=== PATIENT | male | born 1980 | race Caucasian/White ===

== ENCOUNTER 2021-05-24 09:02 | Outpatient (REF) | payer OTHER, SELFPAY ==
[2021-05-24 10:00] LABS: Hematocrit 43.8 % (42-52); Hemoglobin 14.9 g/dl (14.0-18.0); Mean Corpuscular Hemoglobin 29.6 pg (27.0-33.0); Mean Corpuscular Volume 86.9 fL (80-98); Platelet Count 281 X10*3/uL (160-400); Red Blood Count 5.04 X10*6/uL (4.60-5.80); Red Cell Distribution Width 13.1 % (11.0-16.0); White Blood Count 8.5 X10*3/uL (4.8-10.8)
[2021-05-24 10:21] LABS: Estimated Average Glucose 108 mg/dL; Hemoglobin A1C 138.3222 umol/L; Hemoglobin A1c % 5.4 %
[2021-05-24 10:22] LABS: Alanine Aminotransferase 48 U/L (0-40); Albumin Level 4.3 g/dL (3.5-5.0); Alkaline Phosphatase 68 U/L (39-117); Anion Gap 12 (12-20); Aspartate Amino Transferase 26 U/L (5-37); Bilirubin Total 0.5 mg/dL (0.0-1.0); Blood Urea Nitrogen 7 mg/dL (9-16); Calcium 9.2 mg/dL (8.4-10.2); Carbon Dioxide 26 mmol/L (22-29); Chloride 107 mmol/L (96-108); Cholesterol 206 mg/dL; Estimated Glomerular Filt Rate > 60; Glucose Fasting 102 mg/dL (60-99); HDL Cholesterol 32 mg/dL; Potassium 4.2 mmol/L (3.3-5.1); Sodium 141 mmol/L (135-145); Total Protein 7.1 g/dL (6.5-8.0); Triglycerides 523 mg/dL
== END 2021-05-24 09:03 | disposition home or self-care (01) ==
LOC: HO.LAB 09:02
PROVIDERS: PCP Physician Assistant; Visit Provider Physician Assistant
DX: Z13.220 Encounter for screening for lipoid disorders (principal); Z13.29 Encounter for screening for other suspected endocrine disorder; I10 Essential (primary) hypertension
CPT/HCPCS: 36415; 80053; 80061; 83036; 84443; 85027

== ENCOUNTER 2021-09-05 09:59 | Emergency (ER) | payer OTHER, SELFPAY ==
[2021-09-05 10:22] VITALS: BP 142/80; PULSE 65; RESP 20; TEMP 36.3; O2SAT 98; BMI 32.1
== END 2021-09-05 15:45 | disposition left against medical advice (07) ==
PROVIDERS: Emergency Provider Emergency Medicine; PCP Physician Assistant
DX: M25.469 Effusion, unspecified knee (principal)
CPT/HCPCS: 99281; 99282

== ENCOUNTER 2022-09-23 06:06 | Outpatient (REF) | payer OTHER, SELFPAY ==
[2022-09-23 07:33] LABS: Hematocrit 47.5 % (42.0-52.0); Mean Corpuscular HGB Conc 33.7 g/dl (31.0-36.0); Mean Corpuscular Hemoglobin 29.6 pg (27.0-33.0); Mean Platelet Volume 9.8 fL (9.4-12.4); Platelet Count 288 X10*3/uL (160-400); Red Cell Distribution Width 12.4 % (11.0-16.0); White Blood Count 10.3 X10*3/uL (4.8-10.8)
[2022-09-23 11:25] LABS: Alanine Aminotransferase 33 U/L (0-40); Albumin Level 4.4 g/dL (3.5-5.0); Alkaline Phosphatase 70 U/L (39-117); Anion Gap 18 (12-20); Aspartate Amino Transferase 23 U/L (5-37); Bilirubin Total 0.3 mg/dL (0.0-1.0); Blood Urea Nitrogen 13 mg/dL (9-16); Calcium 8.9 mg/dL (8.4-10.2); Carbon Dioxide 25 mmol/L (22-29); Chloride 103 mmol/L (96-108); Cholesterol 213 mg/dL; Estimated Glomerular Filt Rate > 60; HDL Cholesterol 31 mg/dL; Potassium 4.2 mmol/L (3.3-5.1); Sodium 142 mmol/L (135-145); Total Protein 7.4 g/dL (6.5-8.0); Triglycerides 620 mg/dL
[2022-09-23 11:47] LABS: TSH reflex Free T4 4.57 uIU/mL (0.32-4.0)
[2022-09-23 12:27] LABS: Free T4 (Free Thyroxine) 0.99 ng/dL (0.71-1.85)
[2022-09-23 12:37] LABS: Glucose Fasting 105 mg/dL (60-99)
== END 2022-09-23 06:07 | disposition home or self-care (01) ==
LOC: HO.LAB 06:06
PROVIDERS: PCP Physician Assistant; Visit Provider Physician Assistant
DX: I10 Essential (primary) hypertension (principal); E78.1 Pure hyperglyceridemia
CPT/HCPCS: 36415; 80053; 80061; 84439; 84443; 85027

== ENCOUNTER 2023-08-27 13:54 | Outpatient (AMB) | payer OTHER, SELFPAY ==
--- NOTE | 2023-08-27 13:59 | A.OFFPC_ITS ---
Vital Signs 08/27/23 14:01 Height 6 ft 2 in Weight 275 lb 6 oz BMI 35.4 BP 138/70 Blood Pressure Location Lt brachial Position Sitting Respiration 17 Pulse 80 Pulse Source Pulse Oximeter Pulse Oximetry (%) 98 Oxygen Delivery Method Room Air Intake Visit Reasons: Follow up on BP Intake Note: Pt is here elevated blood pressure 220/140 last month with severe headaches. 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 Architect Required: No Accompanied by: Self / Same As Patient Allergies No Known Allergies Allergy (Verified 08/27/23 14:10) Medication List - Last Reconciled 08/27/23 by Paul Guerra PA-C fenofibrate 54 mg PO DAILY 90 days hydrochlorothiazide 12.5 mg PO DAILY 90 days levothyroxine 25 mcg PO DAILY 90 days Tobacco use date assessed: 08/27/23 Dental Screening Dental Screen Date: 08/27/23 Did you have a dental visit in the last 12 months?: Yes Did you have a dental problem in the last 6 months where you did not have access to dental care?: No Was dental information given to patient?: Patient has dentist HPI Follow up on BP HPI Details Patient is a 42 year-old male here today? for a follow-up visit ? Patient's past medical history significant for obesity, tobacco use disorder. 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 Hypertension: Reports he has stopped taking blood pressure medication a couple of months ago and reported having chest pain and noted elevated blood pressure 200/100. Has restarted hydrochlorothiazide in blood pressure has been much better controlled and has no more headaches. .. Tobacco use disorder:? He does understand he needs to quit smoking , he reports he has been having some chest tightness at times and relates this to his smoking..? Also has somewhat of a hoarseness to his voice which he attributes to smoking as well.? We have tried Wellbutrin though he reports he has not tried this medication. He is willing to try generic Chantix has had has been helpful for him in the past .. Obesity:? Unfortunately has not lost weight since last office visit. .. Hypertriglyceridemia:? lipid panel from May 2021 showing triglycerides 0523 that we discussed working lifestyle to reduce his high triglyceride foods. Has yet to get another fasting lab to recheck his fasting cholesterol. 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 1. Little interest or pleasure in doing things: not at all 2. Feeling down, depressed, or hopeless: not at all 3. Trouble falling or staying asleep, or sleeping too much: not at all 4. Feeling tired or having little energy: not at all 5. Poor appetite or overeating: not at all 6. Feeling bad about yourself - or that you are a failure or have let yourself or your family down: not at all 7. Trouble concentrating on things, such as reading the newspaper or watching television: not at all 8. Moving or speaking so slowly that other people could have noticed. Or the opp osite - being so fidgety or restless that you have been moving around a lot more than usual: not at all 9. Thoughts that you would be better off or of hurting yourself in some way: not at all Total score: 0 Depression Screening Interpretation: Negative Depression Screening Done: Yes 67530 - PHQ-9 Billing: Yes Source: Developed by Drs. Fran Kang, Lulu Parekh, Rj Milian and colleagues, with an educational sae from [employer]. Thrive Questionnaire Date Thrive assessed: 08/27/23 I am a: Patient What is your living situation today?: I have a steady place to live Within the past 12 months, did the food you bought not last and you didn't have the money to get more?: Never true Within the past 12 months, did you worry whether your food would run out before you got money to buy more?: Never true Do you have trouble paying for medicines?: No Do you have trouble getting transportation to medical appointments?: No Do you have trouble paying your heating and electricity bill?: No Do you have trouble taking care of your child, family member or friend?: No Do you have trouble with day-to-day activities such as bathing, preparing meals, shopping, managing finances, etc.?: No Are you currently unemployed and looking for a job?: No Are you interested in more education?: No Please select the resources that you would like help with: None Currently or been in a relationship where the following occur: no concerns reported AUDIT C Alcohol Use Questionnaire (AUDIT-C) 1. How often do you have a drink containing alcohol?: Monthly or less 2. How many drinks containing alcohol do you have on a typical day when you are drinking?: 1 or 2 3. How often do you have six or more drinks on one occasion?: Never Total Score: 1 ALEISHA-7 AMB Questionnaire ALEISHA-7 Date ALEISHA - 7 assessed: 08/27/23 Feeling nervous, anxious, or on edge: 0 = Not at all Not being able to stop or control worryin = Not at all Worrying too much about different things: 0 = Not at all Trouble relaxin = Not at all Being so restless that it is hard to sit still: 0 = Not at all Becoming easily annoyed or irritable: 0 = Not at all Feeling afraid as if something awful might happen: 0 = Not at all Total ALEISHA-7 score (0-4 normal; 5-9 mild; 10-14 moderate; 15-21 severe): 0 Source: Developed by Drs. Fran Kang, Lulu Parekh, Rj Milian and colleagues, with an educational sae from [employer]. ALEISHA-7 Assessment Billing ALEISHA-7 Assessment Tool: ALEISHA-7 Assessment 44627 Review of Systems Const Denies headache(s) Eyes Denies loss of vision ENT Denies vertigo, Denies dizziness, Denies headache(s) and Denies sore throat Card Denies chest pain, Denies leg edema and Denies lightheadedness Resp Denies cough, Denies hemoptysis and Denies wheezing GI Denies abdominal pain, Denies melena, Denies constipation, Denies diarrhea and Denies vomiting Denies dysuria, Denies urinary frequency and Denies urinary urgency Musc Denies arthralgias, Denies joint swelling, Denies numbness and Denies tingling Neuro Denies Abnormal speech present, Denies behavioral changes, Denies vertigo, Denies dizziness, Denies headache(s), Denies loss of vision, Denies memory loss, Denies numbness and Denies tingling Psych Denies anxiety, Denies behavioral changes, Denies depression, Denies memory loss and Denies panic attacks Jameel/Lymph Denies easy bleeding and Denies easy bruising Aller/Immun Denies wheezing Physical exam (Primary Care) Vital Signs: Last Vital Signs Pulse 80 08/27/23 14:01 Resp 17 08/27/23 14:01 BP 138/70 08/27/23 14:01 Pulse Ox 98 08/27/23 14:01 Oxygen Delivery Method Room Air 08/27/23 14:01 BMI result Body Mass Index 35.4 BMI Assessment/Plan discussion: High Tobacco/Smoking Status: Tobacco use Status Tobacco use date assessed 08/27/23 08/27/23 14:09 Patient Tobacco Use Status Current everyday Tobacco 08/27/23 14:09 Tobacco use type Cigarette 08/27/23 14:09 e-Cigarette/Vaping Use Never Used 08/27/23 14:09 PHQ-9: PHQ-9 Score PHQ-9: Total score 0 08/27/23 14:09 Depression Screening Interpretation: Negative Thrive Assessment: Date of Thrive Assessment Date Thrive assessed 08/27/23 08/27/23 14:09 Currently or been in a relationship where the following occur: no concerns reported Const Other: Obese- weight loss noted General: healthy appearing, no acute distress, alert and awake Nutritional Appearance: well nourished Orientation/consciousness: oriented to person, oriented to place and oriented to time HENMT Ears: TM's normal bilaterally General nose exam: Normal nasal mucous membranes and turbinates present Eyes Conjunctivae: conjunctivae normal Sclerae: sclerae normal Pupils: Equal, round and reactive pupils present Neck Neck: Yes no lymphadenopathy and Yes no JVD Thyroid: Thyroid normal Carotids: no bruits Resp Effort & Inspection: normal respiratory effort and not tachypneic Auscultation: no crackles, no rales, no rhonchi and no wheezes Cardio Rate: regular rate Rhythm: regular rhythm Heart sounds: no murmurs and normal S1 and S2 GI Palpation (GI): Soft to palpation, nontender, no hepatomegaly and no splenomegaly Auscultation: normal bowel sounds Skin General skin exam: no rashes or lesions noted and dry skin Neuro General: oriented to person, oriented to place and oriented to time Cranial nerves: Yes Equal, round and reactive pupils present Speech: No Abnormal speech present Gait exam (Neuro): Normal gait present Motor exam (neuro): no tremor noted Extrem Right upper extremity: full ROM Left upper extremity: full ROM Right lower extremity: full ROM; no edema Left lower extremity: full ROM; no edema Psych Mental Status: mental status grossly normal Speech and movement: Normal speech and movement present Affect: normal affect Attitude: cooperative Thought process: Normal thought process present Assessment and Plan Assessment & Plan (1) HTN (hypertension): Code(s): I10 - Essential (primary) hypertension Qualifiers: Hypertension type: primary hypertension Qualified Code(s): I10 - Essential (primary) hypertension Plan: Was recently off blood pressure medication and had a spike in his blood pressure with symptoms of chest pain. Blood pressure much improved today in office. Patient has been on hydrochlorothiazide 12.5 mg without any side effect. He reports he has stopped drinking alcohol. He now wants to work on stopping his smoking. . Goal blood pressure be below 140/90 (2) Tobacco dependence: Code(s): F17.200 - Nicotine dependence, unspecified, uncomplicated Plan: Unfortunately continues to smoke and is willing to restart Chantix as it has been effective for him in the past to stop smoking. (3) Hypertriglyceridemia: Code(s): E78.1 - Pure hyperglyceridemia Plan: Continues on phenyl fibrate. Will recheck his lipid panel to assure normal readings. Will consider statin therapy if LDL above 160 (4) Elevated TSH: Code(s): R79.89 - Other specified abnormal findings of blood chemistry Plan: Will restart levothyroxine 25 mcg as his TSH was elevated on most recent labs. Orders: Orders Microalbumin, Random (w Creat) Today I10 - Essential (primary) hypertension Comprehensive Sells. Panel Fast Today I10 - Essential (primary) hypertension Lipid Panel Today I10 - Essential (primary) hypertension Complete Blood Count no Diff Today R79.89 - Other specified abnormal findings of blood chemistry Medications: New varenicline 0.5 mg PO; Take 0.5 mg qd x 3 days, then 0.5 mg b.i.d. x4 days 7 days 11 tabs 0RF F17.200 - Nicotine dependence, unspecified, uncomplicated varenicline 1 mg PO BID 28 days 56 tabs 3RF F17.200 - Nicotine dependence, unspecified, uncomplicated Refilled levothyroxine 25 mcg PO DAILY 90 days 90 tabs 1RF R79.89 - Other specified abnormal findings of blood chemistry hydrochlorothiazide 12.5 mg PO DAILY 90 days 90 tabs 1RF I10 - Essential (primary) hypertension Coding Level of Care Code Est Pt Level 4 (41715) Diagnoses Primary hypertension I10 Hypertension type: primary hypertension Tobacco dependence F17.200 Hypertriglyceridemia E78.1 Elevated TSH R79.89 Additional Codes ALEISHA-7 Assessment Billing - ALEISHA-7 Assessment Tool: ALEISHA-7 Assessment 22634 ([id number])
[2023-08-27 14:01] VITALS: BP 138/70; PULSE 80; RESP 17; O2SAT 98; BMI 35.4
== END 2023-08-27 14:27 | disposition home or self-care (01) ==
PROVIDERS: PCP Physician Assistant; Visit Provider Physician Assistant
DX: I10 Essential (primary) hypertension (principal); E78.1 Pure hyperglyceridemia; F17.210 Nicotine dependence, cigarettes, uncomplicated; R94.6 Abnormal results of thyroid function studies
CPT/HCPCS: 99214

== ENCOUNTER 2023-12-10 08:08 | Outpatient (AMB) | payer OTHER, SELFPAY ==
[2023-12-10 08:25] VITALS: BP 140/80; PULSE 71; O2SAT 97; BMI 37.0
--- NOTE | 2023-12-10 08:25 | A.OFFPC_ITS ---
Vital Signs 12/10/23 08:25 Height 6 ft 2 in Weight 288 lb BMI 37.0 BP 140/80 H Blood Pressure Location Rt brachial Position Sitting Pulse 71 Pulse Source Pulse Oximeter Pulse Oximetry (%) 97 Oxygen Delivery Method Room Air Intake Visit Reasons: Est Care/Transfer [place]/HTN/Hypertriglyceridemia Intake Note: Pt is here today to est care transfer from [place]/ HTN Allergies No Known Allergies Allergy (Verified 12/10/23 08:36) Medication List - Last Reconciled 12/10/23 by DEVI Haas hydrochlorothiazide 12.5 mg PO DAILY 90 days levothyroxine 25 mcg PO DAILY 90 days Tobacco use date assessed: 12/10/23 Dental Screening Dental Screen Date: 12/10/23 Did you have a dental visit in the last 12 months?: No Was dental information given to patient?: Patient has dentist HPI HPI Comments History of Present Illness Details This is a 43-year-old male here to establish care. He has a past medical history significant for hypertension, hyperlipidemia, hypothyroidism, and anxiety. He has history of his blood pressure getting over 200/100. However, with his previous provider he was placed on hydrochlorothiazide and his blood pressure readings have been much improved since then. Patient states he has been taking his blood pressure cuff at home and he has not had a reading where systolic pressure was above 140, or his diastolic pressure has been above 90. His blood pressure today is 140/80. He denies any recent headaches or episodes of dizziness or blurred vision. He will continue to monitor at home, and is going to try to stop smoking. Patient declined influenza immunization today. He is due for labs today will order. Patient has no chief complaint at the appointment today. 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 1. Little interest or pleasure in doing things: not at all 2. Feeling down, depressed, or hopeless: not at all 3. Trouble falling or staying asleep, or sleeping too much: not at all 4. Feeling tired or having little energy: not at all 5. Poor appetite or overeating: not at all 6. Feeling bad about yourself - or that you are a failure or have let yourself or your family down: not at all 7. Trouble concentrating on things, such as reading the newspaper or watching television: not at all 8. Moving or speaking so slowly that other people could have noticed. Or the opposite - being so fidgety or restless that you have been moving around a lot more than usual: not at all 9. Thoughts that you would be better off or of hurting yourself in some way: not at all Total score: 0 Depression Screening Interpretation: Negative Depression Screening Done: Yes 19302 - PHQ-9 Billing: Yes Source: Developed by Drs. Fran Kang, Lulu Parekh, Rj Milian and colleagues, with an educational sae from [employer] Thrive Questionnaire Date Thrive assessed: 12/10/23 I am a: Patient What is your living situation today?: I have a steady place to live Within the past 12 months, did the food you bought not last and you didn't have the money to get more?: Never true Within the past 12 months, did you worry whether your food would run out before you got money to buy more?: Never true Do you have trouble paying for medicines?: No Do you have trouble getting transportation to medical appointments?: No Do you have trouble paying your heating and electricity bill?: No Do you have trouble taking care of your child, family member or friend?: No Do you have trouble with day-to-day activities such as bathing, preparing meals, shopping, managing finances, etc.?: No Are you currently unemployed and looking for a job?: No Are you interested in more education?: No THRIVE Score: 0 ALEISAH-7 AMB Questionnaire ALEISHA-7 Date ALEISHA - 7 assessed: 12/10/23 Feeling nervous, anxious, or on edge: 0 = Not at all Not being able to stop or control worryin = Not at all Worrying too much about different things: 0 = Not at all Trouble relaxin = Not at all Being so restless that it is hard to sit still: 0 = Not at all Becoming easily annoyed or irritable: 0 = Not at all Feeling afraid as if something awful might happen: 0 = Not at all Total ALEISHA-7 score (0-4 normal; 5-9 mild; 10-14 moderate; 15-21 severe): 0 Source: Developed by Drs. Fran Kang, Lulu Parekh, Rj Milian and colleagues, with an educational sae from [employer] ALEISHA-7 Assessment Billing ALEISAH-7 Assessment Tool: ALEISHA-7 Assessment 36483 Review of Systems Const Details: Constitutional : No Weight loss, No Fever, No Chills, No Fatigue, No Malaise Eyes: No Eye Pain, No Swelling, No Redness, No change in vision. Cardiovascular : No Chest Pain, No SOB, No Dyspnea on Exertion, No Orthopnea, No Edema, No Palpitations Respiratory : No Cough, No Sputum, No Wheezing Gastrointestinal : No Nausea, No Vomiting, No Diarrhea, No Constipation, No abdominal Pain, No Hematochezia, No Melena Genitourinary : No Dysuria, No Urinary Frequency, No Hematuria, Musculoskeletal : No joint pain, No Myalgias, No Joint Swelling Skin : No Skin Lesions, No rash Neuro : No Weakness, No Numbness, No Dizziness, No Headache Psych : No Anxiety/Panic, No Depression Heme/Lymph: No Bruising, No Bleeding,No Lymphadenopathy Endocrine : No Polyuria, No Polydipsia All other systems reviewed and are negative Physical exam (Primary Care) Vital Signs: Last Vital Signs Pulse 71 12/10/23 08:25 BP 140/80 H 12/10/23 08:25 Pulse Ox 97 12/10/23 08:25 Oxygen Delivery Method Room Air 01/25/24 08:25 Care Plan Goal for BP management: Patient will continue to take blood pressure measurements at home. BMI result Body Mass Index 37.0 Tobacco/Smoking Status: Tobacco use Status Tobacco use date assessed 12/10/23 12/10/23 08:31 Patient Tobacco Use Status Current everyday Tobacco 12/10/23 08:27 Tobacco use type Cigarette 12/10/23 08:27 e-Cigarette/Vaping Use Never Used 12/10/23 08:27 PHQ-9: PHQ-9 Score PHQ-9: Total score 0 12/10/23 11:46 Depression Screening Interpretation: Negative Thrive Assessment: Date of Thrive Assessment Date Thrive assessed 12/10/23 12/10/23 08:33 Const General: cooperative and no acute distress Orientation/consciousness: patient oriented x3 Limitations: no limitations HENMT Head: Yes normocephalic Ears: TM's normal bilaterally General nose exam: Normal external nose present Eyes General: appearance normal, both eyes and all related structures Pupils: Equal, round and reactive pupils present EOM: EOMs intact bilaterally Direct Ophthalmoscopy: normal light reflex, no photophobia and no papilledema Neck Neck: Yes normal visual inspection and Yes full ROM Resp Auscultation: wheezes expiratory wheezes and upper bilaterally Cardio Rate: regular rate Rhythm: regular rhythm Heart sounds: S1 normal heart sound present and S2 normal heart sound present Peripheral pulses: Peripheral pulses 2+ throughout GI Inspection: Yes normal to inspection Neuro General: patient oriented x3 Cranial nerves: Yes CN's II-XII intact bilaterally and Yes Equal, round and reactive pupils present Gait exam (Neuro): Normal gait present Psych Attitude: cooperative Thought process: Normal thought process present Thought content: Normal thought content present Insight: Good insight present (Psych) Judgement: Good judgement present (Psych) Results Reviewed Results Reviewed: Will call patient with lab results. Assessment and Plan Assessment & Plan (1) HTN (hypertension): Comment: Patient is currently on hydrochlorothiazide 12.5 mg. He wants to continue taking his blood pressure measurements at home, as he states most of his measurements at home are close to 120/80. Code(s): I10 - Essential (primary) hypertension Qualifiers: Hypertension type: primary hypertension Qualified Code(s): I10 - Essential (primary) hypertension (2) Tobacco dependence: Comment: Patient is a current everyday smoker. He is not currently taking the Varenicline he was prescribed by his previous provider. Patient would like to try quitting again in the future. Smoking cessation declined at this time. Code(s): F17.200 - Nicotine dependence, unspecified, uncomplicated Plan: Take your medications as prescribed. If you were prescribed antibiotics today, it is important that you take your medication to their entirety, do not skip any doses, do not finish them early. Follow-up with your primary care provider this week. Return to the emergency department with new or worsening symptoms. Such as fevers, chills, chest pain, shortness of breath, nausea, vomiting, dizziness, headache, vision changes, lethargy In case of emergency call 911 (3) Wheeze: Comment: Patient has slight bilateral wheeze of the upper loads. Will prescribe albuterol for the patient to use as needed. He has been educated on side effects of this medication and how to take it properly. He has been educated on signs of worsening symptoms when to report to the office or when to present to the deep Code(s): R06.2 - Wheezing Plan: Take your medications as prescribed. If you were prescribed antibiotics today, it is important that you take your medication to their entirety, do not skip any doses, do not finish them early. Follow-up with your primary care provider this week. Return to the emergency department with new or worsening symptoms. Such as fevers, chills, chest pain, shortness of breath, nausea, vomiting, dizziness, headache, vision changes, lethargy In case of emergency call 911 Plan Patient will follow-up with PCP for annual exam in 4-5 month Orders: Orders Vitamin D 25-OH (D2 and D3) Today Z13.21 - Encounter for screening for nutritional disorder Vitamin B6 Today Z13.21 - Encounter for screening for nutritional disorder Comprehensive Met. Panel Today I10 - Essential (primary) hypertension Complete Blood Count Auto Diff Today Z13.0 - Encounter for screening for diseases of the blood and blood-forming organs and certain disorders involving the immune mechanism Lipid Panel Today Z13.220 - Encounter for screening for lipoid disorders PSA,Total (Free>4and<10) Today Z12.5 - Encounter for screening for malignant neoplasm of prostate Vitamin B12 Today Z13.21 - Encounter for screening for nutritional disorder UA CC w/rflx Micro + Cult Today I10 - Essential (primary) hypertension TSH reflex Free T4 Today R79.89 - Other specified abnormal findings of blood chemistry Microalbumin, Random (w Creat) Today Z13.1 - Encounter for screening for diabetes mellitus Medications: New albuterol sulfate 90 mcg/actuation 2 puffs inhalation Q6H PRN 6.7 grams 0RF shortness of breath or wheezing Review Flu Vaccine not done: patient reason Coding Level of Care Code Est Pt Level 3 (01206) Diagnoses Primary hypertension I10 Hypertension type: primary hypertension Tobacco dependence F17.200 Wheeze R06.2 Additional Codes ALEISHA-7 Assessment Billing - ALEISHA-7 Assessment Tool: ALEISHA-7 Assessment 44896 ([id number]) Time Spent (min) 30
== END 2023-12-10 09:51 | disposition home or self-care (01) ==
LOC: HO.HMGC 08:08
PROVIDERS: PCP Physician Assistant; Visit Provider Nurse Practitioner Primary Care
DX: I10 Essential (primary) hypertension (principal); F17.210 Nicotine dependence, cigarettes, uncomplicated; R06.2 Wheezing
CPT/HCPCS: 99213

== ENCOUNTER 2024-04-08 07:46 | Outpatient (AMB) | payer OTHER, SELFPAY ==
[2024-04-08 07:58] VITALS: BP 128/80; PULSE 86; O2SAT 96; BMI 36.5
--- NOTE | 2024-04-08 07:58 | A.OFFPC_ITS ---
Vital Signs 04/08/24 07:58 Height 6 ft 2 in Weight 284 lb BMI 36.5 BP 128/80 Blood Pressure Location Lt brachial Position Sitting Pulse 86 Pulse Source Pulse Oximeter Pulse Oximetry (%) 96 Oxygen Delivery Method Room Air Intake Visit Reasons: Annual PE Intake Note: Pt is here today for her PE Allergies No Known Allergies Allergy (Verified 04/08/24 08:11) Medication List - Last Reconciled 04/08/24 by DEVI Haas albuterol sulfate 90 mcg/actuation 2 puffs inhalation Q6H PRN hydrochlorothiazide 12.5 mg PO DAILY 90 days levothyroxine 25 mcg PO DAILY 90 days Tobacco use date assessed: 04/08/24 Dental Screening Dental Screen Date: 04/08/24 Did you have a dental visit in the last 12 months?: No Was dental information given to patient?: Patient declined HPI HPI Comments History of Present Illness Details Patient is a 43-year-old male in today for physical exam. Patient is up-to-date with Tdap previous was in 2020. Patient is due for fasting labs including PSA will order today. Past medical history significant for:, Hypertension: Patient currently utilizing hydrochlorothiazide 12.5 mg. Has been taking blood pressures at home with blood pressure measurements similar to today's measurement at the office. Hypothyroidism: Patient currently taking 25 mcg levothyroxine sodium will draw TSH today. Seasonal allergies: Patient utilizing albuterol inhaler infrequently 1-2 times per month. [facility] Medical History (Updated 04/08/24 @ 08:29 by DEVI Haas) Elevated TSH ALEISHA (generalized anxiety disorder) Hypertriglyceridemia Surgical History History of knee surgery Family History Sister Endometrial cancer Maternal Grandfather Prostate CA Social History Housing: House Alcohol intake: current Alcohol intake frequency: holidays/special occasions only Patient Tobacco Use Status: Current everyday Tobacco user Tobacco use type: Cigarette Cigarettes Per Day: 6 e-Cigarette/Vaping Use: Never Used Second Hand Smoke Exposure: Yes service: No Current occupational status: employed 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 75000 - PHQ-9 Billing: Patient declined-do not bill Source: Developed by Drs. Fran Kang, Lulu Parekh, Rj Milian and colleagues, with an educational sae from [employer]. Thrive Questionnaire Date Thrive assessed: 12/10/23 ALEISHA-7 AMB Questionnaire ALEISHA-7 Date ALEISHA - 7 assessed: 12/10/23 Source: Developed by Drs. Fran Kang, Lulu Parekh, Rj Milian and colleagues, with an educational sae from [employer]. ALEISHA-7 Assessment Billing ALEISHA-7 Assessment Tool: ALEISHA-7 Assessment 67949 Review of Systems Const Details: Constitutional : No Weight loss, No Fever, No Chills, No Fatigue, No Malaise ENT/Mouth : No sore throat, No Rhinorrhea Eyes: No Eye Pain, No Swelling, No Redness Cardiovascular : No Chest Pain, No SOB, No Dyspnea on Exertion, No Orthopnea, No Edema, No Palpitations Respiratory : No Cough, No Sputum, No Wheezing Gastrointestinal : No Nausea, No Vomiting, No Diarrhea, No Constipation, No abdominal Pain, No Hematochezia, No Melena. Admits reflux. Genitourinary : No Dysuria, No Urinary Frequency, No Hematuria, Musculoskeletal : No joint pain, No Myalgias, No Joint Swelling Skin : No Skin Lesions, No rash Neuro : No Weakness, No Numbness, No Dizziness, No Headache Psych : No Anxiety/Panic, No Depression Heme/Lymph: No Bruising, No Bleeding,No Lymphadenopathy Endocrine : No Polyuria, No Polydipsia All other systems reviewed and are negative Physical exam (Primary Care) Vital Signs: Last Vital Signs Pulse 86 04/08/24 07:58 BP 128/80 04/08/24 07:58 Pulse Ox 86 L 04/08/24 07:58 Oxygen Delivery Method Room Air 04/08/24 07:58 Care Plan Goal for BP management: Patient will continue with current regimen. Will continue to record values at home BMI result Body Mass Index 36.5 Tobacco/Smoking Status: Tobacco use Status Tobacco use date assessed 04/08/24 04/08/24 08:03 Patient Tobacco Use Status Current everyday Tobacco 04/08/24 08:03 Tobacco use type Cigarette 04/08/24 08:03 e-Cigarette/Vaping Use Never Used 04/08/24 08:03 Are you ready to quit: No Tobacco cessation counseling provided: No Tobacco use cessation counseling not done medical reason: other (pt declined. ) Thrive Assessment: Date of Thrive Assessment Date Thrive assessed 12/10/23 04/08/24 08:03 Advance Care Planning discussion: Declined forms Const Other: Appearance: Alert.? Oriented X3.? No acute distress.? Head: Normocephalic, Eyes: Pupils equal, round and reactive to light.? ENT: Pharynx normal.?TM intact and pearly cook. Neck: Normal inspection.? Neck supple.? CVS: Normal heart rate and rhythm.? Pulses normal.? Respiratory: No respiratory distress.? Breath sounds normal.? Abdomen: Soft and nontender.? Skin: Skin warm and dry.? Normal skin color.? Normal skin turgor.? Extremities: No lower extremity edema.? 5/5 strength to bilateral upper and lower extremities Back: No midline tenderness, no C-spine tenderness, full range of motion, no CVA tenderness bilaterally Neuro: Oriented X 3.? No motor deficit.? No sensory deficit. CN 2-12 intact Assessment and Plan Assessment & Plan (1) Encounter for physical examination: Comment: Will draw fasting labs today. Code(s): Z00.00 - Encounter for general adult medical examination without abnormal findings (2) GERD (gastroesophageal reflux disease): Comment: Patient will start on pantoprazole 20 mg p.o. daily. Code(s): K21.9 - Gastro-esophageal reflux disease without esophagitis Qualifiers: Esophagitis presence: esophagitis presence not specified Qualified Code(s): K21.9 - Gastro-esophageal reflux disease without esophagitis (3) Wheeze: Comment: Patient utilizes albuterol 1-2 times per month Code(s): R06.2 - Wheezing (4) Tobacco dependence: Comment: Patient is a current everyday smoker. He is not currently taking the Varenicline he was prescribed by his previous provider. Patient would like to try quitting again in the future. Smoking cessation declined at this time. Code(s): F17.200 - Nicotine dependence, unspecified, uncomplicated (5) HTN (hypertension): Comment: Patient is currently on hydrochlorothiazide 12.5 mg. He wants to continue taking his blood pressure measurements at home, as he states most of his measurements at home are close to 120/80. Code(s): I10 - Essential (primary) hypertension Qualifiers: Hypertension type: primary hypertension Qualified Code(s): I10 - Essential (primary) hypertension (6) Elevated TSH: Comment: Patient taking levothyroxine 25 mcg p.o. daily. Will draw TSH. Code(s): R79.89 - Other specified abnormal findings of blood chemistry Plan Follow up in 6 months. Medications: New pantoprazole 20 mg PO DAILY 30 tabs 0RF Coding Level of Care Code Est Pt Prev Care 40-64y(55155) Diagnoses Encounter for physical examination Z00.00 Gastroesophageal reflux disease, unspecified whether esophagitis present K21.9 Esophagitis presence: esophagitis presence not specified Wheeze R06.2 Tobacco dependence F17.200 Primary hypertension I10 Hypertension type: primary hypertension Elevated TSH R79.89 Additional Codes ALEISHA-7 Assessment Billing - ALEISHA-7 Assessment Tool: ALEISHA-7 Assessment 59001 ([id number]) Vital Signs *Quality* - Advance Care Planning discussion: Declined forms ([id number]) Time Spent (min) 27
== END 2024-04-08 09:03 | disposition home or self-care (01) ==
PROVIDERS: PCP Nurse Practitioner Primary Care; Visit Provider Nurse Practitioner Primary Care
DX: Z00.00 Encounter for general adult medical examination without abnormal findings (principal); K21.9 Gastro-esophageal reflux disease without esophagitis; R06.2 Wheezing; Z68.36 Body mass index [BMI] 36.0-36.9, adult; F17.210 Nicotine dependence, cigarettes, uncomplicated; I10 Essential (primary) hypertension; R79.89 Other specified abnormal findings of blood chemistry
CPT/HCPCS: 1124F; 99396

== ENCOUNTER 2024-04-18 11:33 | Emergency (ER) | payer OTHER, SELFPAY ==
--- NOTE | ~2024-04-18 | XR_ITS ---
EXAMINATION: XR WRIST, LEFT CLINICAL INFORMATION: Left wrist pain, trauma. COMPARISON: None available. TECHNIQUE: PA, lateral, and oblique views of the left wrist. FINDINGS: There is a comminuted intra-articular fracture of the distal radius with mild displacement of fracture fragments and mild impaction. Moderately displaced avulsion fracture of the ulnar styloid. Tiny fragment distal to the ulnar styloid of indeterminate age. Diffuse soft tissue swelling of the wrist. XR/XR wrist LT min 3V IMPRESSION: 1. Comminuted intra-articular, fracture of the distal radius with mild displacement of fracture fragments and mild impaction. 2. Moderately displaced avulsion fracture of the ulnar styloid. This study was presented today April 18, 2024 for interpretation. STAT results provided at this time as requested by referring provider.
[2024-04-18 12:16] VITALS: BP 145/82; PULSE 63; RESP 18; TEMP 36.6; O2SAT 98; BMI 33.4
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
[2024-04-18] MEDS: Ibuprofen 600 MG TABLET PO (14:12)
[2024-04-18] MEDS: oxyCODONE HCl Immed Release 5 MG TABLET PO (14:12)
[2024-04-18 14:48] VITALS: BP 134/85; PULSE 51; RESP 18; TEMP 36.8; O2SAT 95
[2024-04-18 15:41] VITALS: BP 134/85; PULSE 51; RESP 16; TEMP 36.8; O2SAT 95
== END 2024-04-18 15:42 | disposition home or self-care (01) ==
PROVIDERS: Emergency Provider Emergency Medicine; PCP Nurse Practitioner Primary Care
DX: S52.572A Other intraarticular fracture of lower end of left radius, initial encounter for closed fracture (principal); S52.612A Displaced fracture of left ulna styloid process, initial encounter for closed fracture; V86.59XA Driver of other special all-terrain or other off-road motor vehicle injured in nontraffic accident, initial encounter; Y93.89 Activity, other specified; Y92.9 Unspecified place or not applicable; Y99.9 Unspecified external cause status
CPT/HCPCS: 29125; 73110; 99283; 99284

== ENCOUNTER 2024-04-27 08:32 | Outpatient (AMB) | payer OTHER, SELFPAY ==
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
[2024-04-27 08:47] VITALS: BMI 33.4
== END 2024-04-27 11:36 | disposition home or self-care (01) ==
PROVIDERS: PCP Nurse Practitioner Primary Care; Visit Provider Orthopaedic Surgery
DX: S52.502A Unspecified fracture of the lower end of left radius, initial encounter for closed fracture (principal); S52.615A Nondisplaced fracture of left ulna styloid process, initial encounter for closed fracture; F17.200 Nicotine dependence, unspecified, uncomplicated
CPT/HCPCS: 99204

== ENCOUNTER 2024-04-27 09:15 | Outpatient (REF) | payer OTHER, SELFPAY ==
--- NOTE | ~2024-04-27 | XR_ITS ---
EXAMINATION: XR WRIST, LEFT CLINICAL INFORMATION: Pain in left wrist. COMPARISON: April 18, 2024. TECHNIQUE: PA, lateral, and oblique views of the left wrist. FINDINGS: Redemonstration of a comminuted intra-articular fracture of the distal radius with mild impaction and mild displacement of fracture fragments. Moderately displaced avulsion fracture of the ulnar styloid redemonstrated. Stable tiny ossific/calcific fragment distal to the ulnar styloid. Soft tissue swelling at the wrist. XR/XR wrist LT min 3V IMPRESSION: 1. Redemonstration of comminuted intra-articular fracture of the distal radius with mild impaction and mild displacement of fracture fragments. 2. Moderately displaced avulsion fracture of the ulnar styloid redemonstrated. 3. Stable tiny ossific/calcific fragment distal to the ulnar styloid.
== END 2024-04-27 09:16 | disposition home or self-care (01) ==
LOC: HO.HOSX 09:15
PROVIDERS: Visit Provider Orthopaedic Surgery
DX: S52.502A Unspecified fracture of the lower end of left radius, initial encounter for closed fracture (principal); S52.615A Nondisplaced fracture of left ulna styloid process, initial encounter for closed fracture
CPT/HCPCS: 73110; 99202

== ENCOUNTER 2024-05-02 05:41 | Day surgery (SDC) | payer OTHER, SELFPAY ==
--- NOTE | ~2024-05-02 | FL_ITS ---
EXAMINATION: XR FLUOROSCOPY WITH IMAGES CLINICAL INFORMATION: Left distal radius fracture. COMPARISON: None available. TECHNIQUE: Fluoroscopy Supervised By: Dr. Magui Almonte. Fluoroscopy Time: 56.12 seconds. Cumulative Dose: 1.6528 mGy. DAP: 0.0999 Gycm2. Images: 12. FINDINGS: Intraoperative fluoroscopy and spot films were performed during a procedure in the OR. A comminuted intra-articular fracture involving the distal left radius is seen. An ulnar styloid fracture is present as well. No hardware is seen. Please correlate with Dr. Magui Almonte's report for complete details. FL/FL guidance in OR IMPRESSION: Intraoperative fluoroscopy and spot films were obtained. Please see Dr. Magui Almonte's report for complete details.
[2024-05-02 06:13] VITALS: BP 164/74; PULSE 70; RESP 16; TEMP 36.8; O2SAT 97; BMI 37.4
[2024-05-02] MEDS: Lactated Ringers 1,000 ML 100 ML IVCONT (06:42)
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
--- NOTE | 2024-05-02 07:41 | MHC.SHP ---
Pre-Procedural Eval Section A - 24 Hr Update-Section A only Date of Service: 05/02/24 The patient is an INPATIENT: No Changes since office visit: No Cold of Flu in the past 2 weeks, No New Medical Problems, No Changes in Medication and No Patient answered all questions The patient has been examined within 24 hours of the surgical procedure. The History & Physical has been completed within 30 days and I have reviewed it.: Yes Section B - Complete if H&P > 30 days Chief Complaint: Unspecified fracture of the lower end of left radi Allergies: Allergies Allergy/AdvReac Type Severity Reaction Status Date / Time No Known Allergies Allergy Verified 05/02/24 06:11 Plan I have reviewed the history and physical and performed a pertinent physical examination on my patient. No changes have occurred unless specified. Time Spent With Patient Time: Total time managing care of this patient today ____ minutes.
--- NOTE | 2024-05-02 08:23 | P.CONAN_ITS ---
HPI - Anesthesia Eval Consult details Narrative: left radius fracture repair PMFSH Active Problems Active Problems: All Active Problems Traumatic closed nondisplaced fracture of styloid process of left ulna (Acute) Fracture of left distal radius (Acute) Encounter for physical examination (Acute) Elevated TSH (Acute) GERD (gastroesophageal reflux disease) (Acute) Wheeze (Acute) Tobacco dependence (Acute) HTN (hypertension) (Acute) Impacted cerumen of left ear (Acute) Annual physical exam (Acute) Screening for hypothyroidism (Acute) Screening for hypercholesterolemia (Acute) Screening for diabetes mellitus (DM) (Acute) Smoking (Acute) Obese (Acute) Past Medical History Medical History Elevated TSH ALEISHA (generalized anxiety disorder) Hypertriglyceridemia Family History Family History Sister Endometrial cancer Maternal Grandfather Prostate CA Family history of problems with anesthesia: No Surgical History Surgical History History of knee surgery History of Problems with Anesthesia: No Social History Social History Housing: House Alcohol intake: never Patient Tobacco Use Status: Current everyday Tobacco user Tobacco use type: Cigarette Cigarettes Per Day: 10 Years Smoked: 24 Smoked in Last 30 Days: Yes e-Cigarette/Vaping Use: Never Used Second Hand Smoke Exposure: Yes Use of substances other than those prescribed or required for medical reasons: Yes Substance Use Frequency: Daily Are you DNR?: No Advance Directives: No Advance Directives Information Provided: Yes service: No Current occupational status: employed 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 Cognitive needs: No Hearing needs: No Vision needs: Yes Meds Allergies Allergy/AdvReac Type Severity Reaction Status Date / Time No Known Allergies Allergy Verified 05/02/24 06:11 Active Medications: Current Medications Albuterol Sulfate (Albuterol Sulfate (0.083%) 2.5 Mg/3 Ml Vial.Neb) 2.5 mg INHALE ONCE PRN PRN Reason: Shortness of Breath/Wheezing Lactated Ringer's (Lr) 1,000 mls @ 100 mls/hr IVCONT .Q10H LIANET Last Admin: 05/02/24 06:42 Dose: 100 mls/hr Exam Height,Weight and Vital Signs: Height 6 ft 2 in Weight 132.268 kg Last Vital Signs Temp 98.2 F 05/02/24 06:13 Pulse 70 05/02/24 06:13 Resp 16 05/02/24 06:13 BP 164/74 H 05/02/24 06:13 Pulse Ox 97 05/02/24 06:13 O2 Del Method Room Air 05/02/24 06:13 Airway Mallampati Class: II TM Dist: >3cm Neck ROM: Full Heart: rrr Lungs: cta Assessment and Plan Assessment Anesthesia Assessment: Anesthesia Plan Discussed, Smoking Cess. Discussed and Chart Reviewed Final Anesthetic Review Family History of Problems with Anesthesia: No History of Problems with Anesthesia: No NPO: Yes ASA Class: III Final Preanesthetic Review: No Changes in Pt Med Stat, Meds/Allgs Chart Reviewed, Consent Obtained/Reviewed and Anes Risks/Benef Reviewed Patient Risk: Intermediate Procedure Risk: Intermediate Anesthetic Plan Anesthetic Plan: GA and Regional Block Disposition: Standard PACU
[2024-05-02 10:30] VITALS: BP 147/86; PULSE 86; RESP 16; TEMP 36.7; O2SAT 92
[2024-05-02 10:35] VITALS: BP 141/89; PULSE 84; RESP 16; O2SAT 92
[2024-05-02 10:40] VITALS: BP 148/90; PULSE 85; RESP 16; O2SAT 94
[2024-05-02 10:45] VITALS: BP 136/97; PULSE 82; RESP 16; O2SAT 93
[2024-05-02 11:00] VITALS: BP 130/87; PULSE 73; RESP 16; TEMP 36.4; O2SAT 94
== END 2024-05-02 11:10 | disposition home or self-care (01) ==
PROVIDERS: PCP Nurse Practitioner Primary Care; Visit Provider Orthopaedic Surgery
PROC: (CPT 25608; principal; 2024-05-02 07:30)
DX: S52.572A Other intraarticular fracture of lower end of left radius, initial encounter for closed fracture (principal); S52.615A Nondisplaced fracture of left ulna styloid process, initial encounter for closed fracture; V86.95XA Unspecified occupant of 3- or 4- wheeled all-terrain vehicle (ATV) injured in nontraffic accident, initial encounter; Y93.I9 Activity, other involving external motion; Y92.89 Other specified places as the place of occurrence of the external cause; Y99.8 Other external cause status; E78.1 Pure hyperglyceridemia; R94.6 Abnormal results of thyroid function studies; F41.1 Generalized anxiety disorder; F17.210 Nicotine dependence, cigarettes, uncomplicated; Z98.890 Other specified postprocedural states
CPT/HCPCS: 25608; C1713; J0131; J0171; J0665; J0690; J1100; J2250; J2405; J2704; J2795; J3010

== ENCOUNTER → 2024-05-02 05:41 | Outpatient (BNV) | payer OTHER, SELFPAY | PROVIDERS: PCP Nurse Practitioner Primary Care; Visit Provider Orthopaedic Surgery | DX: S52.572A Other intraarticular fracture of lower end of left radius, initial encounter for closed fracture (principal); S52.612A Displaced fracture of left ulna styloid process, initial encounter for closed fracture | CPT/HCPCS: 25608 ==

== ENCOUNTER 2024-05-11 10:30 | Outpatient (REF) | payer OTHER, SELFPAY ==
--- NOTE | ~2024-05-11 | XR_ITS ---
EXAMINATION: XR WRIST, LEFT CLINICAL INFORMATION: Pain in left wrist. COMPARISON: 04/27/2024 and others. TECHNIQUE: PA, lateral, and oblique views of the left wrist. FINDINGS: Status post ORIF with plate and screw fixation of previously noted comminuted intra-articular fracture of the distal radius with improved alignment of fracture fragments. Hardware appears intact. Redemonstration moderately displaced avulsion fracture of the ulnar styloid. Previously identified tiny ossific/calcific fragment distal to the ulnar styloid redemonstrated. XR/XR wrist LT min 3V IMPRESSION: 1. Status post ORIF with plate and screw fixation of previously noted comminuted intra-articular fracture of the distal radius with improved alignment of fracture fragments. Hardware appears intact. 2. Redemonstration moderately displaced avulsion fracture of the ulnar styloid.
== END 2024-05-11 10:31 | disposition home or self-care (01) ==
LOC: HO.HOSX 10:30
PROVIDERS: Visit Provider Orthopaedic Surgery
DX: S52.502D Unspecified fracture of the lower end of left radius, subsequent encounter for closed fracture with routine healing (principal); S52.615D Nondisplaced fracture of left ulna styloid process, subsequent encounter for closed fracture with routine healing; F17.210 Nicotine dependence, cigarettes, uncomplicated
CPT/HCPCS: 73110; 99212

== ENCOUNTER 2024-05-11 12:55 | Outpatient (AMB) | payer OTHER, SELFPAY ==
--- NOTE | 2024-05-11 13:17 | MHC.OFFVIS ---
Vital Signs 05/11/24 13:32 Height 6 ft 2 in Weight 253 lb BMI 32.5 Handedness Right Intake Visit Reasons: PO LT distal radius ORIF poss ulna 05/02/24 AR Intake Note: Thad is a 43 year old right hand dominant male who presents today post operatively for Left Distal radius and ulnar fracture ORIF 05/02/24. Patient reports he is doing well, he states he has been working on gentle ROM by moving in his finger. He is taking the oxycodone/acetaminophen for relief at night time and ibuprofen during the day. Sutures and incision site look clean. Allergies No Known Allergies Allergy (Verified 05/11/24 13:32) HPI HPI PO LT distal radius ORIF poss ulna 05/02/24 AR: Details: Thad is a 43 year old right hand dominant man who returns S/P left distal radius ORIF, DOS: 05/02/24. He says he is doing well, and his pain is manageable with Ibuprofen. He has been working on gentle finger ROM exercises while in his cast, including trying to grab a cup of water. He says he has been working light duty for the last few days. He is a smoker of cigarettes daily. 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 Sutures removed and Steri-Strips applied Full pronation Supination to neutral He can make a fist and extend all his digits Sensation is intact Cap refill is brisk Radiographs: 3 views of the left wrist were taken and viewed by me today in clinic. They show a distal radius fracture & an ulnar styloid base fracture with satisfactory fracture alignment and position of all implants Psych Appearance: grossly normal Affect: normal affect Attitude: cooperative Assessment & Plan Assessment & Plan (1) Fracture of left distal radius: Code(s): S52.502A - Unspecified fracture of the lower end of left radius, initial encounter for closed fracture Category: Medical (2) Traumatic closed nondisplaced fracture of styloid process of left ulna: Code(s): S52.615A - Nondisplaced fracture of left ulna styloid process, initial encounter for closed fracture Category: Medical (3) Tobacco dependence: Comment: Patient is a current everyday smoker. He is not currently taking the Varenicline he was prescribed by his previous provider. Patient would like to try quitting again in the future. Smoking cessation declined at this time. Code(s): F17.200 - Nicotine dependence, unspecified, uncomplicated Category: Medical Plan Assessment & Plan: 1. Left distal radius fracture, S/P ORIF From a fall, DOI: 04/17/24 DOS: 05/02/24 2. Left ulnar styloid base fracture From a fall, DOI: 04/17/24 The patient appears to be doing well post-operatively I educated him about the post-operative course He was placed in a short arm cast to be worn for the next 3 weeks I discussed activity modifications at length, he is to lift nothing heavier than a cellphone for the next 3 weeks. He more could risk displacing the fracture and breaking the screws. He will perform gentle finger ROM exercises at home, and work on gentle supination exercises. He is a smoker, I explained the effects of smoking on healing and recommend he stop until he is fully healed. He expressed understanding. He will follow up in 3 weeks with X-rays, 3 V L wrist, OOP. Scribed for Magui Almonte MD by Ramon Chatterjee, medical affairs manager, on 05/11/24 at 1:45 PM, EST. Orders: Orders XR wrist LT min 3V Today M25.532 - Pain in left wrist Scribe Plan - Not visible on output: Scribed for Magui Almonte MD by Ramon Chatterjee, medical affairs manager, on [ ] at [ ], EST. Coding Level of Care Code Global (11431) Diagnoses Fracture of left distal radius S52.502A Traumatic closed nondisplaced fracture of styloid process of left ulna S52.615A Tobacco dependence F17.200
[2024-05-11 13:32] VITALS: BMI 32.5
== END 2024-05-11 14:21 | disposition home or self-care (01) ==
PROVIDERS: PCP Nurse Practitioner Primary Care; Visit Provider Orthopaedic Surgery
DX: S52.502A Unspecified fracture of the lower end of left radius, initial encounter for closed fracture (principal); S52.615A Nondisplaced fracture of left ulna styloid process, initial encounter for closed fracture; F17.200 Nicotine dependence, unspecified, uncomplicated
CPT/HCPCS: 99024

== ENCOUNTER 2024-05-18 09:20 | Outpatient (AMB) | payer OTHER, SELFPAY ==
--- NOTE | 2024-05-18 09:23 | AM.OFFWIN_ITS ---
Intake Vital Signs 05/18/24 09:25 Height 6 ft 2 in Weight 265 lb BMI 34.0 BP 128/84 Blood Pressure Location Rt brachial Position Sitting Pulse 103 H Pulse Source Pulse Oximeter Temp 99.8 F Temp Source Oral Pulse Oximetry (%) 98 Oxygen Delivery Method Room Air Intake Visit Reasons: EP Neck Swelling, pain Intake Note: pt is here c/o Sore throat, swollen glands, fever, body aches. Started Wednesday 05/16 Patient Tobacco Use Status: Current everyday Tobacco user Allergies No Known Allergies Allergy (Verified 05/18/24 09:24) Do you need a note to return to daycare/school/sports/work: Yes PFSH Medical History Elevated TSH ALEISHA (generalized anxiety disorder) Hypertriglyceridemia Surgical History History of knee surgery Family History Sister Endometrial cancer Maternal Grandfather Prostate [place] Social History Housing: House Alcohol intake: never Patient Tobacco Use Status: Current everyday Tobacco user Tobacco use type: Cigarette Cigarettes Per Day: 10 Years Smoked: 24 e-Cigarette/Vaping Use: Never Used Second Hand Smoke Exposure: Yes service: No Current occupational status: employed 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 Cognitive needs: No Hearing needs: No Vision needs: Yes Physical Exam Vital Signs: Last Vital Signs Temp 99.8 F 05/18/24 09:25 Pulse 103 H 05/18/24 09:25 BP 128/84 05/18/24 09:25 Pulse Ox 98 05/18/24 09:25 Oxygen Delivery Method Room Air 05/18/24 09:25 BMI result Body Mass Index 34.0 Const General: cooperative, healthy appearing, comfortable and tired appearing Orientation/consciousness: patient oriented x3 Limitations: no limitations HEENT Head: Yes normal to inspection Ears: hearing grossly normal bilaterally and external ears normal General nose exam: Normal external nose present, Normal nares present and No nasal discharge present Face and sinus: Yes normal facial exam Mouth: Normal oral and palatal mucosa present and moist mucous membranes Throat: Yes tonsils normal, Yes uvula midline and Yes posterior oropharynx abnormal (Erythema and exudates present) Eyes General: appearance normal, both eyes and all related structures Neck Neck: Yes normal visual inspection Resp Effort & Inspection: normal respiratory effort and able to speak in complete sentences Skin General skin exam: no rashes or lesions noted Neuro General: patient oriented x3 Extrem General: Yes normal to inspection and Yes no clubbing, cyanosis or edema Results AMB Rapid Strep AMB Rapid Strep Positive Last Edit by Monty De Los Santos CMA on 05/18/24 09:36 Results Reviewed Results Reviewed: Laboratory Last Values Strep Scn Rapid Clinic Positive 05/18/24 09:34 Assessment & Plan Assessment & Plan (1) Acute streptococcal pharyngitis: Code(s): J02.0 - Streptococcal pharyngitis Plan: strep + in office, sent amox to pharmacy Plan see above Orders: Orders AMB Rapid Strep Screen Today Z13.9 - Encounter for screening, unspecified Medications: New amoxicillin 500 mg PO Q12H 20 caps 0RF Coding Level of Care Code Est Pt Level 3 (09224) Diagnoses Acute streptococcal pharyngitis J02.0
[2024-05-18 09:25] VITALS: BP 128/84; PULSE 103; TEMP 37.7; O2SAT 98; BMI 34.0
== END 2024-05-18 09:40 | disposition home or self-care (01) ==
PROVIDERS: PCP Nurse Practitioner Primary Care; Visit Provider Physician Assistant
DX: J02.0 Streptococcal pharyngitis (principal)
CPT/HCPCS: 87880; 99213

== ENCOUNTER 2024-06-01 10:17 | Outpatient (REF) | payer OTHER, SELFPAY ==
--- NOTE | ~2024-06-01 | XR_ITS ---
EXAMINATION: XR WRIST, LEFT CLINICAL INFORMATION: Pain in the left wrist. COMPARISON: Multiple prior examinations including most recent x-rays of 05/11/2024. TECHNIQUE: PA, lateral, and oblique views of the left wrist. FINDINGS: Postop changes noted with plate and screw fixation along the volar aspect of the distal radius. Fracture remains relatively inconspicuous albeit partially visible and overall unchanged. Persistent minimally displaced ulnar styloid fracture. Possible small area of osseous bridging, new compared to prior. Remaining bones, joints and soft tissues unremarkable. XR/XR wrist LT min 3V IMPRESSION: 1. Stable postoperative changes. Stable appearance of the distal radius fracture without significant change. 2. Persistent minimally displaced ulnar styloid fracture possible small area of osseous bridging.
== END 2024-06-01 10:18 | disposition home or self-care (01) ==
LOC: HO.HOSX 10:17
PROVIDERS: Visit Provider Orthopaedic Surgery
DX: S52.502D Unspecified fracture of the lower end of left radius, subsequent encounter for closed fracture with routine healing (principal); S52.615D Nondisplaced fracture of left ulna styloid process, subsequent encounter for closed fracture with routine healing; F17.210 Nicotine dependence, cigarettes, uncomplicated
CPT/HCPCS: 73110; 99212

== ENCOUNTER 2024-06-01 14:40 | Outpatient (AMB) | payer OTHER, SELFPAY ==
--- NOTE | 2024-06-01 14:52 | MHC.OFFVIS ---
Vital Signs 06/01/24 14:58 Handedness Right Intake Visit Reasons: PO LT distal radius ORIF poss ulna 05/02/24 AR Intake Note: Thad is a 43 year old right hand dominant male who presents today post operatively S/P Left Distal radius & ulnar fracture ORIF 05/02/24 w AR. X-rays updated and cast removed. Patient reports he is doing well, he says his wrist feels stiff and has discomfort. He has been working on gentle ROM. Allergies No Known Allergies Allergy (Verified 06/01/24 14:58) HPI HPI PO LT distal radius ORIF poss ulna 05/02/24 AR: Details: Thad is a 43 year old right hand dominant man who returns S/P left distal radius ORIF, DOS: 05/02/24. He says he is doing well, and denies any pain. He reports some stiffness & discomfort in his wrist, and has been working on gentle ROM exercises at home. He says he has been working light duty at work but feels he has been using his hand for more activities than he should have . He reports lifting up to 5-10lbs commonly. He is a smoker of cigarettes daily. 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 Full pronation Supination to neutral He can make a fist and extend all his digits Sensation is intact Cap refill is brisk Radiographs: 3 views of the left wrist were taken and viewed by me today in clinic. They show a distal radius fracture & an ulnar styloid base fracture with satisfactory fracture alignment and position of all implants Psych Appearance: grossly normal Affect: normal affect Attitude: cooperative Assessment & Plan Assessment & Plan (1) Fracture of left distal radius: Code(s): S52.502A - Unspecified fracture of the lower end of left radius, initial encounter for closed fracture Category: Medical (2) Traumatic closed nondisplaced fracture of styloid process of left ulna: Code(s): S52.615A - Nondisplaced fracture of left ulna styloid process, initial encounter for closed fracture Category: Medical (3) Tobacco dependence: Comment: Patient is a current everyday smoker. He is not currently taking the Varenicline he was prescribed by his previous provider. Patient would like to try quitting again in the future. Smoking cessation declined at this time. Code(s): F17.200 - Nicotine dependence, unspecified, uncomplicated Category: Medical Plan Assessment & Plan: 1. Left distal radius fracture, S/P ORIF From a fall, DOI: 04/17/24 DOS: 05/02/24 2. Left ulnar styloid base fracture From a fall, DOI: 04/17/24 The patient appears to be doing well post-operatively I educated him about the post-operative course He was fitted for a velcor wrist splint to be worn with daily activity when out of the house for the next 4 weeks He will remove his splint and work on ROM exercises at home, 20X daily I discussed activity modifications at length, he is to use his hand for lightweight activities only for the next few weeks, with a 5lb weight limit at this time He more could risk displacing the fracture and breaking the screws. He is a smoker, I explained the effects of smoking on healing and recommend he stop until he is fully healed. He expressed understanding. He will follow up in 4 weeks for a ROM check, no X-rays unless he has a fall or new injury Scribed for MICHELA Zurita by Ramon Chatterjee coroner/medical examiner, on 06/01/24 at 3:00 PM, EST. Orders: Orders XR wrist LT min 3V Today M25.532 - Pain in left wrist Scribe Plan - Not visible on output: Scribed for Magui Almonte MD by Ramon Chatterjee, coroner/medical examiner, on [ ] at [ ], EST. Coding Level of Care Code Global (26482) Diagnoses Fracture of left distal radius S52.502A Traumatic closed nondisplaced fracture of styloid process of left ulna S52.615A Tobacco dependence F17.200
== END 2024-06-01 15:14 | disposition home or self-care (01) ==
PROVIDERS: PCP Nurse Practitioner Primary Care
DX: S52.502A Unspecified fracture of the lower end of left radius, initial encounter for closed fracture (principal); S52.615A Nondisplaced fracture of left ulna styloid process, initial encounter for closed fracture; F17.200 Nicotine dependence, unspecified, uncomplicated
CPT/HCPCS: 99024

== ENCOUNTER 2024-09-17 13:24 | Emergency (ER) | payer SELFPAY ==
--- NOTE | ~2024-09-17 | XR_ITS ---
EXAMINATION: XR ABDOMEN KUB CLINICAL INDICATION: Pain pain COMPARISON: None available. TECHNIQUE: AP view of the abdomen. FINDINGS: The bowel gas pattern is normal with no evidence of ileus or obstruction. No unusual soft tissue calcifications are noted. The bones are unremarkable. XR/XR KUB IMPRESSION: Unremarkable examination. Electronically signed by: Demetri Santos MD 09/17/2024 04:57 PM EDT RP
[2024-09-17 13:47] VITALS: BP 129/74; PULSE 85; RESP 16; TEMP 36.3; O2SAT 97; BMI 30.8
[2024-09-17 14:08] LABS: MANUAL DIFF FLAG NO
[2024-09-17 14:09] LABS: Basophils Absolute Auto 0.1 X10*3/uL (0.0-0.2); Basophils Percent Auto 0.6 % (0-2); Eosinophils Absolute Auto 0.2 X10*3/uL (0.0-0.4); Eosinophils Percent Auto 2.1 % (0-4); Hematocrit 46.3 % (42.0-52.0); Hemoglobin 15.8 g/dl (14.0-18.0); Imm Gran Abs Auto 0.03 X10*3/uL (0.00-0.03); Imm Gran Pct Auto 0.3 % (0.0-0.4); Lymphocytes Absolute Auto 2.8 X10*3/uL (1.2-4.9); Lymphocytes Percent Auto 31.2 % (20-40); Mean Corpuscular HGB Conc 34.1 g/dl (31.0-36.0); Mean Corpuscular Hemoglobin 29.2 pg (27.0-33.0); Mean Corpuscular Volume 85.4 fL (80.0-98.0); Mean Platelet Volume 9.4 fL (9.4-12.4); Monocytes Absolute Auto 0.8 X10*3/uL (0.1-1.2); Monocytes Percent Auto 8.4 % (2-11); Neutrophils Absolute Auto 5.2 x10*3/uL (2.0-8.3); Neutrophils Percent Auto 57.4 % (45-73); Platelet Count 282 X10*3/uL (160-400); Red Blood Count 5.42 X10*6/uL (4.60-5.80); Red Cell Distribution Width 13.1 % (11.0-16.0)
[2024-09-17 14:24] LABS: Alanine Aminotransferase 28 U/L (0-40); Albumin Level 4.3 g/dL (3.5-5.0); Alkaline Phosphatase 83 U/L (39-117); Anion Gap 13 (12-20); Aspartate Amino Transferase 21 U/L (5-37); Blood Urea Nitrogen 9 mg/dL (9-16); Calcium 9.1 mg/dL (8.4-10.2); Carbon Dioxide 26 mmol/L (22-29); Chloride 107 mmol/L (96-108); Creatinine Clr Calc Pharmacy 145.2; Estimated Glomerular Filt Rate > 60; Glucose Random 109 mg/dL (60-115); Lipase 34 U/L (8-78); Magnesium 2.3 mg/dL (1.6-2.6); Potassium 4.3 mmol/L (3.3-5.1); Sodium 142 mmol/L (135-145); Total Protein 7.3 g/dL (6.5-8.0)
[2024-09-17 16:01] VITALS: BP 128/78; PULSE 69; RESP 16; TEMP 36.6; O2SAT 97
--- NOTE | 2024-09-17 17:43 | ED_ITS ---
HPI - GI Bleed General Chief complaint: GI Bleed Stated complaint: rectal bleeding Time Seen by Provider: 09/17/24 16:15 Source: patient Limitations: no limitations History of Present Illness ED Provider: Mishel Castano PA-C HPI Narrative: 43-year-old male with a history of hemorrhoids presents with rectal bleeding x2 days. Patient states he is constipated, he has been straining to have bowel movements. He is noting bright red blood on the toilet paper after having a bowel movement. Denies abdominal pain, nausea, vomiting or fever. Denies large volume bloody bowel movements. Patient states 1 of the hemorrhoids became painful, it subsequently ruptured and bled, it has shrunk and is no longer bothersome. Related Data Previous Rx's ?Medication ?Instructions ?Recorded hydrochlorothiazide 12.5 mg tablet 12.5 mg PO DAILY 90 days #90 tabs 08/27/23 levothyroxine 25 mcg tablet 25 mcg PO DAILY 90 days #90 tabs 08/27/23 albuterol sulfate 90 mcg/actuation 2 puff inhalation Q6H PRN 12/10/23 aerosol inhaler shortness of breath or wheezing #6.7 grams ibuprofen 600 mg tablet 600 mg PO Q8H PRN pain #14 tabs 04/18/24 ibuprofen 600 mg tablet 600 mg PO Q6-8H PRN pain #30 tabs 05/02/24 pantoprazole 20 mg tablet,delayed 20 mg PO DAILY #90 tabs 07/06/24 release hydrocortisone acetate 25 mg 25 mg DE BID PRN hemorrhoids #24 ea 09/17/24 rectal suppository (Anusol-HC) Allergies Allergy/AdvReac Type Severity Reaction Status Date / Time No Known Allergies Allergy Verified 09/17/24 13:52 Review of Systems 2 Review of Systems: Yes all other systems are reviewed and are negative Constitutional: Constitutional: Denies fatigue and Reports fever(s) Gastrointestinal: Gastrointestinal: Denies abdominal pain, Denies bloating, Reports hematochezia, Reports constipation, Denies diarrhea, Denies nausea and Denies vomiting Endocrine: Endocrine: Denies fatigue PMFSH Past Medical History Attestation statement: The following information was validated with the patient. Medical History Elevated TSH ALEISHA (generalized anxiety disorder) Hypertriglyceridemia Surgical History History of knee surgery Family History Family History Sister Endometrial cancer Maternal Grandfather Prostate [place] Social History Social History Housing: House Alcohol intake: never Patient Tobacco Use Status: Current everyday Tobacco user Tobacco use type: Cigarette Cigarettes Per Day: 10 Years Smoked: 24 Smoked in Last 30 Days: Yes e-Cigarette/Vaping Use: Never Used Second Hand Smoke Exposure: Yes Use of substances other than those prescribed or required for medical reasons: No Advance Directives: No service: No Current occupational status: employed 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 Cognitive needs: No Hearing needs: No Vision needs: Yes Physical Exam 2 Vital Signs: Vital Signs: Last Vital Signs Temp 97.9 F 09/17/24 16:01 Pulse 69 09/17/24 16:01 Resp 16 09/17/24 16:01 BP 128/78 09/17/24 16:01 Pulse Ox 97 09/17/24 16:01 O2 Del Method Room Air 09/17/24 16:01 BMI result Body Mass Index 30.8 Const: Other: Alert, well appearing Orientation/consciousness: patient oriented x3 Resp: Other: Nonlabored respirations GI: Other: Abdomen is soft, nondistended nontender, deferred rectal exam Skin: Other: Warm dry no rash Neuro: General: patient oriented x3, no focal motor deficits and CN's II-XI intact bilaterally Psych: Other: Calm, cooperative Medical Decision Making Medical Decision Making MDM Narrative: 43-year-old male with a history of hemorrhoids presents with rectal bleeding x2 days. Patient states he is constipated, he has been straining to have bowel movements. He is noting bright red blood on the toilet paper after having a bowel movement. Denies abdominal pain, nausea, vomiting or fever. Denies large volume bloody bowel movements. Patient states 1 of the hemorrhoids became painful, it subsequently ruptured and bled, it has shrunk and is no longer bothersome. Problem: Known hemorrhoids History: Per patient I have considered the following differential diagnoses: Hemorrhoids, thrombosed hemorrhoid, perirectal abscess, diverticulosis, diverticulitis Plan: Patient here with bleeding hemorrhoids, the bleeding has been minimal. He is constipated. Without obstructive symptoms. We will obtain a KUB to assess his stool burden. Screening labs were obtained. Thought about diverticulosis diverticulitis, however there was no abdominal pain, he is afebrile, he has no abdominal pain, advanced imaging is not warranted. He also has no signs symptoms concerning for a perirectal abscess. I have independently reviewed the following tests: Labs: No leukocytosis, not anemic, no electrolyte abnormality KUB: Some stool burden noted Lab Data 09/17/24 14:03 09/17/24 14:03 Labs: Lab Results 09/17/24 Range/Units 14:03 WBC 9.0 (4.8-10.8) X10*3/uL RBC 5.42 (4.60-5.80) X10*6/uL Hgb 15.8 (14.0-18.0) g/dl Hct 46.3 (42.0-52.0) % MCV 85.4 (80.0-98.0) fL MCH 29.2 (27.0-33.0) pg MCHC 34.1 (31.0-36.0) g/dl RDW 13.1 (11.0-16.0) % Plt Count 282 (160-400) X10*3/uL MPV 9.4 (9.4-12.4) fL Immature Gran % (Auto) 0.3 (0.0-0.4) % Neut % (Auto) 57.4 (45-73) % Lymph % (Auto) 31.2 (20-40) % [place] % (Auto) 8.4 (2-11) % Eos % (Auto) 2.1 (0-4) % Baso % (Auto) 0.6 (0-2) % Lymph # (Auto) 2.8 (1.2-4.9) X10*3/uL [place] # (Auto) 0.8 (0.1-1.2) X10*3/uL Eos # (Auto) 0.2 (0.0-0.4) X10*3/uL Baso # (Auto) 0.1 (0.0-0.2) X10*3/uL Abs Immat Gran (auto) 0.03 (0.00-0.03) X10*3/uL Absolute Neuts (auto) 5.2 (2.0-8.3) x10*3/uL Absolute Nucleated RBC 0.000 (0.0-0.012) X10*3/uL Nucleated RBC % (auto) 0.0 (0.0-0.2) /100WBC Sodium 142 (135-145) mmol/L Potassium 4.3 (3.3-5.1) mmol/L Chloride 107 (96-108) mmol/L Carbon Dioxide 26 (22-29) mmol/L Anion Gap 13 (12-20) BUN 9 (9-16) mg/dL Creatinine 0.87 (0.5-1.4) mg/dL Estim Creat Clear Calc 145.2 Estimated GFR > 60 Random Glucose 109 (60-115) mg/dL Calcium 9.1 (8.4-10.2) mg/dL Magnesium 2.3 (1.6-2.6) mg/dL Total Bilirubin 1.0 (0.0-1.0) mg/dL AST 21 (5-37) U/L ALT 28 (0-40) U/L Alkaline Phosphatase 83 (39-117) U/L Total Protein 7.3 (6.5-8.0) g/dL Albumin 4.3 (3.5-5.0) g/dL Lipase 34 (8-78) U/L Discharge Plan Discharge Clinical Impression: Bleeding hemorrhoids, Constipation Patient Disposition: Home, Self-Care Instructions: Constipation (ED), Hemorrhoids (ED), High Fiber Diet (ED), Sitz Bath (DC) Additional Instructions: All of your labs were stable, the x-ray revealed a your constipated. Use the suppositories as needed to help shrink the hemorrhoids and alleviate the discomfort. In regard to the constipation, see home care instructions. You need to start using [id number] Colace, this is a stool softener, 1 to 2 times a day. In addition, use [id number] MiraLax, mixed the powder per package instructions, drink the liquid either every hour until you begin having multiple large volume bowel movements, or 1 to 3 times a day, and you will gradually began having bowel movements. Once you have cleared out your current stool burden, you should stay on the Colace daily, and perhaps you will only need the MiraLax a few times a week. Follow up with your primary care provider to schedule colonoscopy for further assessment of your hemorrhoids. Prescriptions: New hydrocortisone acetate [Anusol-HC] 25 mg suppository 25 mg DE BID PRN (Reason: hemorrhoids) Qty: 24 0RF No Action pantoprazole 20 mg tablet,delayed release (DR/EC) 20 mg PO DAILY Qty: 90 0RF ibuprofen 600 mg tablet 600 mg PO Q8H PRN (Reason: pain) Qty: 14 0RF ibuprofen 600 mg tablet 600 mg PO Q6-8H PRN (Reason: pain) Qty: 30 0RF levothyroxine 25 mcg tablet 25 mcg PO DAILY 90 Days Qty: 90 1RF hydrochlorothiazide 12.5 mg tablet 12.5 mg PO DAILY 90 Days Qty: 90 1RF albuterol sulfate 90 mcg/actuation HFA aerosol inhaler 2 puff inhalation Q6H PRN (Reason: shortness of breath or wheezing) Qty: 6.7 0RF Stand Alone Forms: Work/School Release Print Language: Maldivian
[2024-09-17 17:56] VITALS: BP 128/78; PULSE 69; RESP 18; TEMP 36.6; O2SAT 97
== END 2024-09-17 17:56 | disposition home or self-care (01) ==
PROVIDERS: Physician Assistant Medical; Emergency Provider Emergency Medicine; PCP Nurse Practitioner Primary Care
DX: K64.9 Unspecified hemorrhoids (principal); K59.00 Constipation, unspecified; F17.210 Nicotine dependence, cigarettes, uncomplicated
CPT/HCPCS: 36415; 74018; 80053; 83690; 83735; 85025; 99283; 99284

== ENCOUNTER 2025-03-08 09:12 | Outpatient (REF) | payer OTHER, SELFPAY ==
--- OUTSIDE RECORDS SUMMARY | 2025-03-08 10:43 | XMS_ITS | Clinical Summary ---
Author Organization [facility] Address [address] [place] [address] Phone Care Team Providers Care Ferryboat Operator Name Role Phone Physician, Pcp Unknown Primary [...] this topic Insurance WC GENERIC Care Teams Ferryboat Operator Relationship Specialty Start Date End Date Physician, Pcp Unknown PCP - General 11/24/24
[2025-03-08 14:56] LABS: Adenovirus PCR Not Detected (Not Detect.); Bordetella parapertussis PCR Not Detected (Not Detect.); Bordetella pertussis PCR Not Detected (Not Detect.); Chlamydia pneumoniae PCR Not Detected (Not Detect.); Coronavirus 229E PCR Not Detected (Not Detect.); Coronavirus HKU1 PCR Not Detected (Not Detect.); Coronavirus NL63 PCR Not Detected (Not Detect.); Coronavirus OC43 PCR Not Detected (Not Detect.); Human metapneumovirus PCR Not Detected (Not Detect.); Influenza A PCR Not Detected (Not Detect.); Influenza B PCR Not Detected (Not Detect.); Mycoplasma pneumoniae PCR Not Detected (Not Detect.); Parainfluenza 1 PCR Not Detected (Not Detect.); Parainfluenza 2 PCR Not Detected (Not Detect.); Parainfluenza 3 PCR Not Detected (Not Detect.); Parainfluenza 4 PCR Not Detected (Not Detect.); RSV PCR Not Detected (Not Detect.); Rhino/Enterovirus PCR Not Detected (Not Detect.)
[2025-03-08 15:11] LABS: Influenza A H1 PCR Not Detected (Not Detect.); Influenza A H1-2009 PCR Not Detected (Not Detect.); Influenza A H3 PCR Not Detected (Not Detect.); SARS-CoV-2 PCR Not Detected (Not Detect.)
== END 2025-03-08 09:13 | disposition home or self-care (01) ==
LOC: HO.LAB 09:12
PROVIDERS: PCP Internal Medicine; Visit Provider Physician Assistant
DX: J06.9 Acute upper respiratory infection, unspecified (principal); H61.22 Impacted cerumen, left ear
CPT/HCPCS: 87633; 87880; 99212

== ENCOUNTER 2025-03-08 09:12 | Outpatient (AMB) | payer OTHER, SELFPAY ==
--- NOTE | 2025-03-08 09:14 | AM.OFFWIN_ITS ---
Intake Vital Signs 03/08/25 09:15 Weight 275 lb BP 130/90 H Blood Pressure Location Lt brachial Position Sitting Pulse 75 Pulse Source Pulse Oximeter Temp 98.4 F Temp Source Oral Pulse Oximetry (%) 95 Oxygen Delivery Method Room Air Intake Visit Reasons: EP-fever, sore throat, body ache, headaches, cough Intake Note: Patient here for fevers, sore throat, body aches and headaches that started yesterday. Patient Tobacco Use Status: Current everyday Tobacco user Allergies No Known Allergies Allergy (Verified 03/08/25 09:16) Do you need a note to return to daycare/school/sports/work: Yes HPI HPI Comments History of Present Illness Details History - The patient is a 44-year-old male pres enting with upper respiratory symptoms, including voice loss and congestion, persisting for two to three days. He has experienced subjective fever and chills and shortness of breath exacerbated by asthma, for which he uses an Albuterol inhaler, which aids in breathing but does not relieve throat symptoms. The patient denies frequent ear infections but reports ear pain on the left side. Other symptoms include cough, congestion, phlegm production, fatigue, headaches, and sinus tenderness without notable pain. Physical Exam General: Cooperative, healthy appearing, comfortable and no acute distress Orientation/consciousness: Patient oriented x3 Limitations: No limitations Head: Normal to inspection Ears: Hearing grossly normal bilaterally, external ears normal and TM's cerumen impaction, right TM normal Nose: Normal external nose present, Normal nares present and clear nasal discharge present Face and sinus: Normal facial exam and Yes sinuses tender Mouth: Normal oral and palatal mucosa present and moist mucous membranes Throat: Yes tonsils normal, Yes uvula midline. Posterior oropharynx erythema Eyes: Appearance normal, both eyes and all related structures Neck: Normal visual inspection Respiratory: Clear to auscultation bilaterally. Normal respiratory effort, able to speak in complete sentences, not Actively coughing, no respiratory distress, not tachypneic, no tripod positioning and no use of accessory muscles Cardiovascular: Regular rate and rhythm. Normal S1 and S2 Skin: No rashes or lesions noted Neuro: Patient oriented x3 Extremities: Normal to inspection and Yes no clubbing, cyanosis or edema PFSH Medical History Elevated TSH ALEISHA (generalized anxiety disorder) Hypertriglyceridemia Surgical History History of knee surgery Family History Sister Endometrial cancer Maternal Grandfather Prostate [place] Social History Housing: House Alcohol intake: never Patient Tobacco Use Status: Current everyday Tobacco user Tobacco use type: Cigarette Cigarettes Per Day: 10 Years Smoked: 24 e-Cigarette/Vaping Use: Never Used Second Hand Smoke Exposure: Yes service: No Current occupational status: employed 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 Cognitive needs: No Hearing needs: No Vision needs: Yes Review of Systems Const All systems reviewed & are unremarkable except as noted in HPI and below Physical Exam Vital Signs: Last Vital Signs Temp 98.4 F 03/08/25 09:15 Pulse 75 03/08/25 09:15 BP 130/90 H 03/08/25 09:15 Pulse Ox 95 03/08/25 09:15 Oxygen Delivery Method Room Air 03/08/25 09:15 Results AMB Rapid Strep AMB Rapid Strep Negative Last Edit by LINDSEY Dorsey on 03/08/25 09:26 Results Reviewed Results Reviewed: Laboratory Last Values Strep Scn Rapid Clinic Negative 03/08/25 09:25 Assessment & Plan Assessment & Plan (1) URI, acute: Code(s): J06.9 - Acute upper respiratory infection, unspecified Plan: VSS, pt well appearing and PE unremarkable. Rapid strep in office is negative. Full viral panel sent. I confirmed the presence of a viral upper respiratory infection and reassured the patient of its typical self-limiting nature. Albuterol usage was affirmed as effective for asthma-related breathing difficulties, while the negative strep test ruled out bacterial pharyngitis. To address sinus inflammation, nasal congestion, and related symptoms, I prescribed Fluticasone nasal spray for targeted steroid therapy, supplemented by a nighttime cough suppressant. I explained that pathogen panel results would be communicated once available and advised on ibuprofen usage to manage throat discomfort. For patient convenience, I issued a work excuse for recovery, emphasizing the importance of rest and fluids. Patient was informed and verbally consented to the use of an ambient scribe for clinic note documentation during this visit (2) Impacted cerumen: Code(s): H61.20 - Impacted cerumen, unspecified ear Qualifiers: Laterality: left Qualified Code(s): H61.22 - Impacted cerumen, left ear Plan: Ear canal clear after irrigation by CARA Rm, pt reports improved hearing. Advised to use Debrox drops every few weeks for prevention of cerumen buildup. Orders: Orders AMB Rapid Strep Screen Today Z13.9 - Encounter for screening, unspecified AMB Cerumen Removal Today H61.22 - Impacted cerumen, left ear Resp Pathogen Panel - [facility] [place] J06.9 - Acute upper respiratory infection, unspecified Medications: New fluticasone propionate 50 mcg/actuation administer into each nostril 1 spray intranasal Q12H 16 grams 0RF benzonatate 200 mg PO BEDTIME PRN 10 caps 0RF cough Coding Level of Care Code Est Pt Level 4 (31181) Diagnoses URI, acute J06.9 Impacted cerumen of left ear H61.22 Laterality: left
[2025-03-08 09:15] VITALS: BP 130/90; PULSE 75; TEMP 36.9; O2SAT 95
--- OUTSIDE RECORDS SUMMARY | 2025-03-08 10:04 | XMS_ITS | Clinical Summary ---
Author Organization [facility] Address [address] [place] [address] Phone Care Team Providers Care Commercial Relationship Manager Name Role Phone Physician, Pcp Unknown Primary Care Provider Mandy vailable Allergies No known active allergies Medications dexAMETHasone (DECADRON) 4 mg tablet Take 1 tablet (4 mg total) by mouth 2 (two) times a day for 4 days. 8 each 11/24/2024 Active methocarbamoL (ROBAXIN) 750 mg tablet Take 2 tablets (1,500 mg total) by mouth 4 (four) times a day. 24 each 11/24/2024 Active Active Problems No known active problems Medical History Medical History Date Comments Hypertension Social History Tobacco Use Types Packs/Day Years Used Date Smoking Tobacco: Every Day Cigarettes Smokeless Tobacco: Never Tobacco Cessation:Ready to Q uit: Not Asked; Counseling Given: Not Answered Sex and Gender Information Value Date Recorded Sex Assigned at Male 11/24/2024 6:32 PM EST Legal Sex Male 5:35 PM EST Gender Identity Male 11/24/2024 6:32 PM EST Sexual Orientation Straight 11/24/2024 6: 32 PM EST Obstetrics History Last Filed Vital Signs Vital Sign Reading Time Taken Comments Blood Pressure 146/79 11/24/2024 7:16 PM EST Pulse 65 11/24/2024 7:16 PM EST Temperature 36.5 ??C (97.7 ??F) 11/24/2024 7:16 PM ES T Respiratory Rate 17 11/24/2024 7:16 PM EST Oxygen Saturation 96% 11/24/2024 7:16 PM EST Inhaled Oxygen Concentration - - Weight 109 kg (240 lb) 11/24/2024 3:54 PM EST Height 170.2 cm (5' 7 ) 11/24/2024 3:54 PM EST Body Mass Index 37.59 11/24/2024 3:54 PM EST Plan of Treatment Health Maintenance Due Date Last Done Comments Hepatitis B Vaccines (1 of 3 - 19+ 3-dose series) 2000 Pneumococcal Vaccine: Pediatrics (0 to 5 Years) and At-Risk Patients (6 to 64 Years) (2 of 2 - PCV) 06/18/2022 06/18/2021 COVID-19 Vaccine (1 - 2023-2 5 season) 2024 Cholesterol Screening (Lipid Panel) 11/25/2024 Depression Screening 11/25/2024 HIV Screening 11/25/2024 Hepatitis C Screening 11/25/2024 Social Influencers of Health Screening 11/25/2024 Influenza Vaccine (Season Ended) 2025 DTaP,Tdap,and Td Vaccines (3 - Td or Tdap) 05/07/2031 05/07/2021, 04/09/2009 HIB Vaccines Aged Out No longer eligi ble based on patient's age to complete this topic HPV Vaccines Aged Out No longer eligi ble based on patient's age to complete this topic Hepatitis A Vaccines Aged Out No long er eligible based on patient's age to complete this topic IPV Vaccines Aged Out No longer eligi ble based on patient's age to complete this topic MMR Vaccines Aged Out No longer eligi ble based on patient's age to complete this topic Meningococcal ACWY Vaccine Aged Out N o longer eligible based on patient's age to complete this topic Meningococcal B Vaccine Aged Out No l onger eligible based on patient's age to complete this topic RSV Immunization Patients Under 20 months Aged Out No longer eligible b ased on patient's age to complete this topic Varicella Vaccines Aged Out No longer eligible based on patient's age to complete this topic Insurance WC GENERIC Care Teams Commercial Relationship Manager Relationship Specialty Start Date End Date Physician, Pcp Unknown PCP - General 11/24/24
== END 2025-03-08 09:53 | disposition home or self-care (01) ==
PROVIDERS: PCP Internal Medicine; Visit Provider Physician Assistant
DX: J06.9 Acute upper respiratory infection, unspecified (principal); H61.22 Impacted cerumen, left ear; Z13.9 Encounter for screening, unspecified

== ENCOUNTER 2025-05-12 15:53 | Outpatient (AMB) | payer OTHER, SELFPAY ==
--- OUTSIDE RECORDS SUMMARY | 2025-05-12 15:55 | XMS_ITS | Clinical Summary ---
Author Organization [facility] Address [address] [place] [address] Phone Care Team Providers Care Film Laboratory Technician Name Role Phone Physician, Pcp Unknown Primary [...] 66 11/24/2024 7:16 PM EST Temperature 36.5 C (97.7 F) 11/24/2024 7:16 PM EST Respiratory Rate 17 11/24/2024 7:16 PM EST [...] patient's age to complete this topic Insurance GENERIC Care Teams Film Laboratory Technician Relationship Specialty Start Date End Date Physician, Pcp Unknown PCP - General 11/24/24
[2025-05-12 15:59] VITALS: BP 142/70; PULSE 76; TEMP 36.7; O2SAT 96; BMI 34.9
--- NOTE | 2025-05-12 15:59 | MHC.OFFWIV ---
Intake Vital Signs 05/12/25 15:59 Height 6 ft 2 in Weight 272 lb BMI 34.9 BP 142/70 H Blood Pressure Location Lt brachial Position Sitting Pulse 76 Pulse Source Pulse Oximeter Temp 98.1 F Temp Source Oral Pulse Oximetry (%) 96 Oxygen Delivery Method Room Air Intake Visit Reasons: EP Headaches, BP related? Intake Note: pt presents with headache and heart pounding. reports hasn't taken his bp meds for approx 2 weeks d/t running out Patient Tobacco Use Status: Current everyday Tobacco user Allergies No Known Allergies Allergy (Verified 05/12/25 15:59) Do you need a note to return to daycare/school/sports/work: Yes Return to daycare/school/sports/work/other note: work HPI HPI Comments History of Present Illness Details This is a 44-year-old male presenting for evaluation of headaches and hypertension. Patient states that he ran out of his hydrochlorothiazide 2 weeks ago. Patient woke up this morning with a headache, checked his blood pressure and he states it was 180/90. Patient states he missed his last primary care appointment because he had to work. Patient states that he works for himself and had no one else to cover his duties. Patient states he was diagnosed with hypertension approximately 3 years ago. At this time the patient states that his headache has resolved with ibuprofen and he denies having any other symptoms including visual changes, chest pain, lightheadedness or shortness for breath. 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 Cognitive needs: No Hearing needs: No Vision needs: Yes Review of Systems Const All systems reviewed & are unremarkable except as noted in HPI and below Reports no additional complaints, Denies fatigue, Reports headache(s) (resolved), Denies lethargy and Denies poor appetite Eyes Reports no additional complaints ENT Reports no additional complaints, Denies dizziness and Reports headache(s) (resolved) Card Reports no additional complaints, Denies chest pain, Denies chest pain at rest, Denies syncope and Denies dyspnea Resp Reports no additional complaints and Denies dyspnea GI Reports no additional complaints Musc Reports no additional complaints Skin/Breast Reports system reviewed and no additional complaints, except as documented Neuro Reports no additional complaints, Denies dizziness, Denies syncope and Reports headache(s) (resolved) Psych Reports no additional complaints Endo Reports no additional complaints and Denies fatigue Jameel/Lymph Reports no additional complaints Aller/Immun Reports no additional complaints Physical Exam Vital Signs: Last Vital Signs Temp 98.1 F 05/12/25 15:59 Pulse 76 05/12/25 15:59 BP 142/70 H 05/12/25 15:59 Pulse Ox 96 05/12/25 15:59 Oxygen Delivery Method Room Air 05/12/25 15:59 BMI result Body Mass Index 34.9 Const General: cooperative, healthy appearing, comfortable, no acute distress, well developed, alert, awake and Physically active Nutritional Appearance: average body habitus Orientation/consciousness: patient oriented x3 Limitations: no limitations Eyes General: appearance normal, both eyes and all related structures Resp Effort & Inspection: normal respiratory effort and able to speak in complete sentences Auscultation: clear to auscultation bilaterally Cardio Rate: regular rate Rhythm: regular rhythm Skin General skin exam: no rashes or lesions noted Neuro General: patient oriented x3 Psych Appearance: grossly normal Mental Status: mental status grossly normal Insight: Good insight present (Psych) Judgement: Good judgement present (Psych) Assessment & Plan Assessment & Plan (1) HTN (hypertension): Comment: Patient previously on hydrochlorothiazide 12.5 mg daily, ran out of his medication 2 weeks ago. Will be refilled for 30 days. Code(s): I10 - Essential (primary) hypertension Qualifiers: Hypertension type: primary hypertension Qualified Code(s): I10 - Essential (primary) hypertension Plan: Hydrochlorothiazide 12.5 mg once daily, patient will follow up with his primary care provider for ongoing management of his hypertension. Medications: New hydrochlorothiazide 12.5 mg PO DAILY 30 caps 0RF Coding Level of Care Code Est Pt Level 3 (19941) Diagnoses Primary hypertension I10 Hypertension type: primary hypertension Time Spent (min) 20
== END 2025-05-12 16:46 | disposition home or self-care (01) ==
PROVIDERS: PCP Internal Medicine; Visit Provider Physician Assistant
DX: I10 Essential (primary) hypertension (principal)

== ENCOUNTER → 2025-05-12 15:53 | Outpatient (BNVA) | payer OTHER, SELFPAY | PROVIDERS: PCP Internal Medicine; Visit Provider Physician Assistant | DX: I10 Essential (primary) hypertension (principal) | CPT/HCPCS: 99212 ==

== ENCOUNTER 2025-08-30 11:54 | Emergency (ER) | payer MEDICAID, SELFPAY ==
--- NOTE | 2025-08-30 13:03 | PC.NURSE ---
no answer for triage at 1230, 1250, and 1303
== END 2025-08-30 13:11 | disposition left against medical advice (07) ==
LOC: HO.ED 13:09
PROVIDERS: Emergency Provider Emergency Medicine; PCP Internal Medicine
DX: R07.0 Pain in throat (principal); Z53.21 Procedure and treatment not carried out due to patient leaving prior to being seen by health care provider